=== PATIENT | male | born 1975 | race Caucasian/White ===

== ENCOUNTER 2021-05-13 04:16 | Emergency (ER) | payer MEDICARE, OTHER ==
[~2021-05-13 04:16] MED LIST: KEFLEX500 MG PO
[2021-05-13 04:57] LABS: BASOPHIL 0.7 % (0-2); BILIRUBIN 1+ mg/dL (NEGATIVE); BLOOD 3+ Ery/uL (NEGATIVE); CLARITY CLOUDY (CLEAR); COLOR BROWN (YELLOW); EOSINOPHIL 2.7 % (0-5); GLUCOSE (U) 1+ mg/dL (NORMAL); HCT 41.9 % (42.0-52.0); LEUKOCYTES 1+ Leu/uL (NEGATIVE); LYMPHOCYTE 39.2 % (15-48); MCH 29.4 pg (25.0-31.0); MCHC 33.4 g/dL (32.0-36.0); MONOCYTE 7.8 % (0-12); MPV 8.9 fL (6.0-9.5); NEUTROPHIL 49.4 % (41-80); NITRITE POSITIVE (NEGATIVE); NRBC 0; PLT 224 K/uL (150-400); PROTEIN 3+ mg/dL (NEGATIVE); RBC 4.76 M/uL (4.70-6.00); RDW 11.9 % (11.5-14.0); SPECIFIC GRAVITY >=1.030 (1.001-1.030); WBC 5.5 K/uL (4.0-10.5); pH 6.5 (5.0-9.0)
[2021-05-13 05:03] LABS: AMORPHOUS URATES CRYSTALS TRACE; BACTERIA TRACE; URINARY RBC TNTC; URINARY WBC RARE
[2021-05-13 05:13] LABS: ALBUMIN 3.6 g/dL (3.4-5.0); BILIRUBIN - TOTAL 0.3 mg/dL (0.2-1.0); C-REACTIVE PROTEIN 2.7 mg/dL (<=0.90); CREATININE 0.6 mg/dL (0.67-1.17); GLOBULIN (CALCULATION) 3.1 g/dL; POTASSIUM 4.2 mmol/L (3.5-5.1); TOTAL PROTEIN 6.7 g/dL (6.4-8.2)
[2021-05-13 05:33] LABS: LACTIC ACID 2.7 mmol/L (0.4-1.9)
[2021-05-13] MEDS ORDERED: BACTRIM DS TAB1 EACH PO (06:52)
== END 2021-05-13 08:58 | disposition home or self-care (01) ==
LOC: FER 04:16
PROVIDERS: Internal Medicine
DX: N20.0 Calculus of kidney (principal); E86.0 Dehydration; N28.9 Disorder of kidney and ureter, unspecified
CPT/HCPCS: 36415; 80053; 81001; 83605; 83690; 85025; 86140; J0696; J1170; J7030